=== PATIENT | female | born 1980 | race Caucasian/White ===

== ENCOUNTER 2016-10-11 21:01 | Emergency (ER) | payer SELFPAY ==
[~2016-10-11] VITALS: Ht 167.6 cm; Wt 61.2 kg
--- NOTE | 2016-10-11 21:01 | NUR ---
Patient to ER bed 2 to gown for evaluation. Side rails up. Report given to MONTRELL PENA.
--- NOTE | 2016-10-11 21:08 | NUR ---
Pt brought in by BLS transport in stable condition. Pt had a witnessed syncopal episode during karate class. Pt stated that she was 10 minutes into the class and became dizzy. Pt stated that she sat down and witness stated that she passed out for about 1 minute. 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 Pt denies any pain or symptoms at this time. -sob -chest pain. No acute distress noted at this time, will continue to monitor
--- NOTE | 2016-10-11 21:09 | NUR ---
ER at bedside examining patient.
[2016-10-11 21:27] VITALS: BP 110/78; PULSE 100; RESP 18; TEMP 98.3; O2SAT 100
[2016-10-11 21:50] VITALS: BP 109/66; PULSE 70; RESP 18; TEMP 98.3; O2SAT 100
--- NOTE | 2016-10-11 21:50 | NUR ---
Patient given written and verbal discharge instructions and verbalizes understanding. ER MD gNuyễn discussed with patient the results and treatment provided. Patient in stable condition. ID arm band removed. Patient educated on pain management and to follow up with PMD. Pain Scale 0/10. Opportunity for questions provided and answered.
== END 2016-10-11 21:50 | disposition home or self-care (01) ==
LOC: EDBD 21:01 → SED 21:01
DX: R55 Syncope and collapse (principal); R42 Dizziness and giddiness
CPT/HCPCS: 93005; 99283